=== PATIENT | male | born 1985 | race Caucasian/White ===

== ENCOUNTER 2017-01-26 15:09 | Outpatient (RCR) | payer OTHER ==
[~2017-01-26 15:09] MED LIST: NO HOME MEDICATIONS; PHENERGAN 25 TA25 MG PO
== END 2017-03-13 08:00 ==
LOC: WSOH 15:09
DX: S61.412A Laceration without foreign body of left hand, initial encounter (principal); W25.XXXA Contact with sharp glass, initial encounter; Y99.0 Civilian activity done for income or pay
CPT/HCPCS: 24091; A6549